=== PATIENT | female | born 1990 | race American Indian/Alaskan Native ===

== ENCOUNTER 2017-04-21 13:41 | Emergency (ER) | payer BC ==
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
[2017-04-21 18:28] VITALS: BP 128/70
== END 2017-04-21 18:25 | disposition home or self-care (01) ==
LOC: ED 13:41
DX: M79.1 Myalgia (principal); Z88.0 Allergy status to penicillin
CPT/HCPCS: 93005; 93010; 99282